=== PATIENT | female | born 1985 | race African-American/Black ===

== ENCOUNTER 2020-06-03 14:22 | Inpatient (IN) | payer OTHER ==
[2020-06-03] MEDS ORDERED: SODIUM CHLORIDE 1,000 ML IV STA (15:20)
[2020-06-03] MEDS ORDERED: ONDANSETRON 4 MG/2 ML VIAL IVPUSH ONE (15:21)
[2020-06-03] MEDS ORDERED: ONDANSETRON 4 MG/2 ML VIAL ONE (16:14)
[2020-06-03 17:19] LABS: BASO % 0.3 % (0-2.0); EOS % 0.4 % (0-4.5); HEMATOCRIT 39.5 % (32.4-45.2); HEMOGLOBIN 13.2 GM/dL (10.7-15.3); LYMPH % 25.1 % (8-40); MCH 34.5 pg (25.7-33.7); MCHC 33.4 g/dl (32.0-36.0); MEAN CELL VOLUME 103.2 fl (80-96); MEAN PLT VOLUME 9.9 fl (7.5-11.1); MONO % 6.8 % (3.8-10.2); NEUT % 67.4 % (42.8-82.8); PLATELET COUNT 139 K/MM3 (134-434); RBC 3.83 M/mm3 (3.60-5.2); RDW 16.5 % (11.6-15.6); WHITE BLOOD COUNT 3.9 K/mm3 (4.0-10.0)
[2020-06-03 17:21] LABS: INR 1.25 (0.83-1.09)
[2020-06-03 17:23] LABS: ACTIVATED PTT 30.9 SECONDS (25.2-36.5)
[2020-06-03 17:33] LABS: ALBUMIN 3.7 g/dl (3.4-5.0); CALCIUM 9.1 mg/dL (8.5-10.1)
[2020-06-03 17:35] LABS: CREATININE 0.8 mg/dL (0.55-1.3)
[2020-06-03 17:37] LABS: BILIRUBIN,TOTAL 2.1 mg/dL (0.2-1); TOT PROT 7.6 g/dl (6.4-8.2)
[2020-06-03 17:45] LABS: POTASSIUM 2.7 mmol/L (3.5-5.1)
[2020-06-03] MEDS ORDERED: POTASSIUM CHLORIDE ORAL LIQUID 20 MEQ/15 ML PO ONE (17:50)
[2020-06-03] MEDS ORDERED: POTASSIUM CHLORIDE 20 MEQ PREMIX IVPB 100 ML IVPB ONE (17:51)
[2020-06-03] MEDS ORDERED: DEXTROSE 5%-0.45% SALINE 1,000 ML IV ONE (17:53)
[2020-06-03] MEDS ORDERED: KCL 10 MEQ IVPB 20 MEQ/200 ML INFUS.BAG IVPB ONE (18:02)
[2020-06-03] MEDS ORDERED: POTASSIUM CHLORIDE ORAL LIQUID 20 MEQ/15 ML ONE (18:02)
[2020-06-03 18:32] LABS: EPI CELLS 16 /uL (0-25.1); HYALINE CASTS 21 /uL (0-3.1); URINE APPEARANCE CLOUDY; URINE BACTERIA 1853 /uL (0-1359); URINE BILIRUBIN 2+ (NEGATIVE); URINE COLOR DK YELLOW; URINE GLUCOSE (UA) NEGATIVE (NEGATIVE); URINE KETONE 1+ (NEGATIVE); URINE LEUK ESTERASE TRACE (NEGATIVE); URINE NITRITE NEGATIVE (NEGATIVE); URINE PROTEIN 1+ (NEGATIVE); URINE WBC 195 /uL (0-25.8)
[2020-06-03 18:33] LABS: HCG,QUALITATIVE URINE Negative
[2020-06-03] MEDS ORDERED: FOLIC ACID 1 MG TABLET (FP) PO ONE (19:58)
[2020-06-03] MEDS ORDERED: THIAMINE HCL 100 MG TABLET (FP) PO ONE (19:58)
[2020-06-03] MEDS ORDERED: THIAMINE HCL 100 MG TABLET (FP) ONE (20:02)
[2020-06-03] MEDS ORDERED: FOLIC ACID 1 MG TABLET (FP) ONE (20:03)
[2020-06-03 21:44] LABS: ALBUMIN 3.2 g/dl (3.4-5.0); ALK PHOS 173 U/L (45-117); ANION GAP 9 MMOL/L (8-16); BILIRUBIN,TOTAL 1.5 mg/dL (0.2-1); BLOOD UREA NITROGEN 4.8 mg/dL (7-18); CALCIUM 7.8 mg/dL (8.5-10.1); CHLORIDE 100 mmol/L (98-107); CO2 27 mmol/L (21-32); GLUCOSE,RANDOM 117 mg/dL (74-106); POTASSIUM 3.4 mmol/L (3.5-5.1); SGOT/AST 160 U/L (15-37); SGPT/ALT 82 U/L (13-61); SODIUM 136 mmol/L (136-145); TOT PROT 6.8 g/dl (6.4-8.2)
[2020-06-03] MEDS ORDERED: METOCLOPRAMIDE HCL INJECTION 10 MG/2 ML VIAL IVPB ONE (22:02)
[2020-06-03] MEDS ORDERED: METOCLOPRAMIDE HCL INJECTION 10 MG/2 ML VIAL ONE (22:08)
[2020-06-03] MEDS ORDERED: LACTATED RINGERS SOLUTION 1,000 ML/1,000 ML INFUS.BAG IV SCH (23:45)
[2020-06-03] MEDS ORDERED: PROCHLORPERAZINE INJECTION 10 MG/2 ML VIAL IVPB ONE (23:58)
[2020-06-04] MEDS ORDERED: PANTOPRAZOLE SODIUM 40 MG VIAL IVPB ONE (00:04)
[2020-06-04] MEDS ORDERED: PROCHLORPERAZINE INJECTION 10 MG/2 ML VIAL ONE (00:26)
[2020-06-04] MEDS ORDERED: PANTOPRAZOLE SODIUM 40 MG VIAL ONE ×2 (01:10→08:11)
[2020-06-04] MEDS ORDERED: CEFTRIAXONE 1 MG in DEXTROSE 5%-WATER - 50 ML IVPB SCH (04:43)
[2020-06-04] MEDS ORDERED: ONDANSETRON 4 MG/2 ML VIAL IVPUSH PRN (04:44)
[2020-06-04] MEDS ORDERED: CEFTRIAXONE 1 GM/50 ML BAG ONE (05:04)
[2020-06-04] MEDS ORDERED: FOLIC ACID INJECTION - 1 MG, THIAMINE HCL 100 MG, MULTIVIT INJECTION ADULT 10 ML in SOD... IVPB ONE (05:07)
[2020-06-04] MEDS ORDERED: CEFTRIAXONE 1 GM in DEXTROSE 5%-WATER - 50 ML IVPB SCH (05:30)
[2020-06-04] MEDS ORDERED: THIAMINE HCL 200 MG/2 ML VIAL IVPB SCH ×2 (05:31→10:00)
[2020-06-04] MEDS ORDERED: MULTIVITAMINS (DAILY MVI) TABLET (FP) ONE (08:10)
[2020-06-04] MEDS ORDERED: THIAMINE HCL 200 MG/2 ML VIAL ONE (08:10)
[2020-06-04] MEDS ORDERED: ENOXAPARIN NA (PORCINE) 40 MG/0.4 ML DISP.SYRIN SQ ONE (08:11)
[2020-06-04] MEDS ORDERED: FOLIC ACID 1 MG TABLET (FP) ONE (08:11)
[2020-06-04 08:21] LABS: HEMATOCRIT 35.8 % (32.4-45.2); HEMOGLOBIN 11.7 GM/dL (10.7-15.3); MCHC 32.7 g/dl (32.0-36.0); MEAN CELL VOLUME 104.2 fl (80-96); MEAN PLT VOLUME 9.4 fl (7.5-11.1); PLATELET COUNT 113 K/MM3 (134-434); RBC 3.44 M/mm3 (3.60-5.2); RDW 16.8 % (11.6-15.6); WHITE BLOOD COUNT 3.2 K/mm3 (4.0-10.0)
[2020-06-04 08:41] LABS: ALBUMIN 2.8 g/dl (3.4-5.0); CALCIUM 7.5 mg/dL (8.5-10.1)
[2020-06-04 08:42] LABS: BLOOD UREA NITROGEN 4.2 mg/dL (7-18); MAGNESIUM 1.4 mg/dL (1.8-2.4)
[2020-06-04 08:45] LABS: CREATININE 0.7 mg/dL (0.55-1.3)
[2020-06-04 08:46] LABS: BILIRUBIN,TOTAL 1.2 mg/dL (0.2-1); TOT PROT 5.7 g/dl (6.4-8.2)
[2020-06-04 08:48] LABS: PHOSPHOROUS 2.3 mg/dL (2.5-4.9)
[2020-06-04] MEDS: PANTOPRAZOLE SODIUM 40 MG VIAL IVPUSH SCH (09:17)
[2020-06-04] MEDS: ENOXAPARIN NA (PORCINE) 40 MG/0.4 ML DISP.SYRIN SQ SCH (09:17)
[2020-06-04] MEDS: MULTIVITAMINS (DAILY MVI) TABLET (FP) PO SCH (09:17)
[2020-06-04] MEDS: FOLIC ACID 1 MG TABLET (FP) PO SCH (09:17)
[2020-06-04 10:05] LABS: COCAINE, UR NEGATIVE ng/ml (CUTOFF=300); URINE BARBITURATES NEGATIVE ng/ml (CUTOFF=200); URINE BENZODIAZEPINES NEGATIVE ng/ml (CUTOFF=200)
[2020-06-04 10:06] LABS: METHADONE, UR NEGATIVE ng/ml (CUTOFF=300); OPIATES, URI NEGATIVE ng/ml (CUTOFF=300); PHENCYCLIDINE,URINE NEGATIVE ng/ml (CUTOFF=25); URINE AMPHETAMINES NEGATIVE ng/ml (CUTOFF=500)
[2020-06-04] MEDS ORDERED: POTASSIUM CHLORIDE TABS 20 MEQ TABLET.ER (FP) PO ONE (12:09)
[2020-06-04 14:21] VITALS: BMI 22.6
[2020-06-05] MEDS ORDERED: DEXTROSE 5%-WATER - 50 ML IVPB ONE (08:50)
[2020-06-05] MEDS ORDERED: cefTRIAXone SODIUM 1 GM VIAL ONE (08:50)
[2020-06-05] MEDS: ENOXAPARIN NA (PORCINE) 40 MG/0.4 ML DISP.SYRIN SQ SCH (09:08)
[2020-06-05] MEDS: MULTIVITAMINS (DAILY MVI) TABLET (FP) PO SCH (09:09)
[2020-06-05] MEDS: FOLIC ACID 1 MG TABLET (FP) PO SCH (09:09)
[2020-06-05] MEDS: PANTOPRAZOLE SODIUM 40 MG VIAL IVPUSH SCH (09:09)
[2020-06-05 09:32] LABS: BASO % 0.6 % (0-2.0); HEMATOCRIT 36.5 % (32.4-45.2); LYMPH % 42.1 % (8-40); MCH 34.5 pg (25.7-33.7); MCHC 32.7 g/dl (32.0-36.0); MEAN CELL VOLUME 105.4 fl (80-96); MEAN PLT VOLUME 9.6 fl (7.5-11.1); MONO % 10.9 % (3.8-10.2); NEUT % 42.4 % (42.8-82.8); PLATELET COUNT 101 K/MM3 (134-434); RBC 3.47 M/mm3 (3.60-5.2); RDW 17.2 % (11.6-15.6); WHITE BLOOD COUNT 2.8 K/mm3 (4.0-10.0)
[2020-06-05 09:45] LABS: POTASSIUM 3.1 mmol/L (3.5-5.1)
[2020-06-05 09:50] LABS: CALCIUM 8.3 mg/dL (8.5-10.1)
[2020-06-05 09:51] LABS: BLOOD UREA NITROGEN 3.1 mg/dL (7-18)
[2020-06-05 09:52] LABS: MAGNESIUM 1.5 mg/dL (1.8-2.4)
[2020-06-05 09:53] LABS: CREATININE 0.6 mg/dL (0.55-1.3)
[2020-06-05 09:54] LABS: BILIRUBIN,TOTAL 1.2 mg/dL (0.2-1); TOT PROT 6.1 g/dl (6.4-8.2)
[2020-06-05] MEDS ORDERED: CEFTRIAXONE 1 GM in DEXTROSE 5%-WATER - 50 ML IVPB SCH (10:00)
[2020-06-05] MEDS ORDERED: PANTOPRAZOLE 40 MG TABLET PO SCH (10:00)
[2020-06-05 10:29] LABS: ANISOCYTOSIS 2+; MACROCYTOSIS 2+; PLATELET ESTIMATE DECREASED
[2020-06-05] MEDS ORDERED: POTASSIUM CHLORIDE TABS 20 MEQ TABLET.ER (FP) PO ONE (10:44)
[2020-06-05] MEDS ORDERED: MAGNESIUM SULF 50% (8.12 MEQ/2 ML-1 GM VIAL) IVPB ONE (10:44)
[2020-06-05] MEDS ORDERED: MAGNESIUM SULFATE IN WATER 2 GM/50 ML IVPB IVPB ONE (11:00)
[2020-06-05 16:51] LABS: HIV INTERPRETATION NEGATIVE (NEGATIVE)
[2020-06-05 17:07] LABS: BASO % 2.4 % (0-2.0); EOS % 3.1 % (0-4.5); HEMATOCRIT 42.1 % (32.4-45.2); HEMOGLOBIN 13.3 GM/dL (10.7-15.3); LYMPH % 43.5 % (8-40); MCH 33.3 pg (25.7-33.7); MCHC 31.7 g/dl (32.0-36.0); MEAN CELL VOLUME 105.1 fl (80-96); MEAN PLT VOLUME 10.7 fl (7.5-11.1); MONO % 9.4 % (3.8-10.2); NEUT % 41.6 % (42.8-82.8); PLATELET COUNT 129 K/MM3 (134-434); WHITE BLOOD COUNT 3.1 K/mm3 (4.0-10.0)
[2020-06-05 17:23] LABS: POTASSIUM 3.6 mmol/L (3.5-5.1)
[2020-06-05 17:24] LABS: CALCIUM 8.7 mg/dL (8.5-10.1)
[2020-06-05 17:25] LABS: MAGNESIUM 2.3 mg/dL (1.8-2.4)
[2020-06-05 17:28] LABS: CREATININE 0.7 mg/dL (0.55-1.3)
[2020-06-05 17:37] LABS: BLOOD UREA NITROGEN 2.1 mg/dL (7-18)
[2020-06-05 17:51] LABS: ANISOCYTOSIS 2+; MACROCYTOSIS 2+
[2020-06-05 17:54] VITALS: BP 133/86; PULSE 56; TEMP 98.1
[2020-06-05] MEDS ORDERED: MAGNESIUM OXIDE 400 MG TABLET (FP) PO SCH (22:00)
[2020-06-06 21:07] LABS: HEP B CORE AB, TOT Negative (Negative)
== END 2020-06-05 23:00 | disposition left against medical advice (07) | DRG 463 ==
LOC: JER 14:22 → JERBED 23:57 → J5S 06-04 13:17
PROVIDERS: ADMIT Internal Medicine; ATTEND Family Medicine
DX: N39.0 Urinary tract infection, site not specified (principal); D69.6 Thrombocytopenia, unspecified; E88.09 Other disorders of plasma-protein metabolism, not elsewhere classified; R16.0 Hepatomegaly, not elsewhere classified; D75.89 Other specified diseases of blood and blood-forming organs; R74.01 Elevation of levels of liver transaminase levels; R10.31 Right lower quadrant pain; K76.0 Fatty (change of) liver, not elsewhere classified; E87.6 Hypokalemia; D72.819 Decreased white blood cell count, unspecified; D53.9 Nutritional anemia, unspecified; R11.2 Nausea with vomiting, unspecified; N83.202 Unspecified ovarian cyst, left side; F10.10 Alcohol abuse, uncomplicated; R74.8 Abnormal levels of other serum enzymes
CPT/HCPCS: 36415; 71046-TC-FY; 74177-TC; 80048; 80053; 80307; 81003; 82550; 83516; 83690; 83735; 84100; 84484; 84703; 85025; 85027; 85610; 85730; 86038; 86704; 86706; 86707; 86708; 86709; 86850; 86900; 86901; 87086; 87186; 87340; 87389; 87522; 93005; 93010; 99285-25; C9803; Q9967; U0003

== ENCOUNTER 2020-12-03 12:36 | Emergency (ER) | payer OTHER ==
[2020-12-03 12:47] VITALS: BP 102/72; PULSE 88; TEMP 99; BMI 20.6
[2020-12-03] MEDS ORDERED: KETOROLAC TROMETHAMINE 30 MG/1 ML VIAL IM ONE (13:11)
[2020-12-03] MEDS ORDERED: diazePAM 5 MG TABLET PO ONE (13:12)
[2020-12-03] MEDS ORDERED: KETOROLAC TROMETHAMINE 30 MG/1 ML VIAL ONE (13:14)
[2020-12-03] MEDS ORDERED: diazePAM 5 MG TABLET ONE (13:14)
== END 2020-12-03 13:26 | disposition home or self-care (01) ==
LOC: JER 12:36
PROC: 3E0233Z Introduction of Anti-inflammatory into Muscle, Percutaneous Approach (ICD-10-PCS; principal; 2020-12-03)
DX: M54.2 Cervicalgia (principal)
CPT/HCPCS: 99284-25

== ENCOUNTER 2021-01-03 08:32 | Emergency (ER) | payer OTHER ==
[2021-01-03 08:53] VITALS: BP 125/85; PULSE 82; TEMP 98.1; BMI 24.1
[2021-01-03] MEDS ORDERED: IBUPROFEN 400 MG TABLET (FP) PO ONE ×2 (09:13→09:21)
== END 2021-01-03 10:10 | disposition home or self-care (01) ==
LOC: JER 08:32
DX: M25.511 Pain in right shoulder (principal)
CPT/HCPCS: 73030-TC-RT-FY; 99284-25

== ENCOUNTER 2021-04-10 11:18 | Inpatient (IN) | payer OTHER ==
[2021-04-10] MEDS ORDERED: SODIUM CHLORIDE 0.9% 500 ML INFUS.BAG IV ONE ×2 (12:14→15:15)
[2021-04-10] MEDS ORDERED: ONDANSETRON 4 MG/2 ML VIAL IVPUSH ONE (12:14)
[2021-04-10] MEDS ORDERED: morphine CARPU-JECT 2 MG/1 ML DISP.SYRIN IVPUSH ONE (12:15)
[2021-04-10] MEDS ORDERED: morphine SULFATE 4 MG/ML VIAL ONE (12:31)
[2021-04-10] MEDS ORDERED: ONDANSETRON 4 MG/2 ML VIAL ONE (12:31)
[2021-04-10 12:59] LABS: EOS % 1.3 % (0-4.5); HEMATOCRIT 37.5 % (32.4-45.2); HEMOGLOBIN 12.6 GM/dL (10.7-15.3); LYMPH % 30.6 % (8-40); MCH 35.4 pg (25.7-33.7); MCHC 33.6 g/dl (32.0-36.0); MEAN CELL VOLUME 105.5 fl (80-96); MEAN PLT VOLUME 8.2 fl (7.5-11.1); MONO % 8.4 % (3.8-10.2); NEUT % 58.7 % (42.8-82.8); PLATELET COUNT 238 10^3/uL (134-434); RBC 3.56 M/mm3 (3.60-5.2); RDW 16.2 % (11.6-15.6); WHITE BLOOD COUNT 4.2 K/mm3 (4.0-10.0)
[2021-04-10 13:23] LABS: CALCIUM 8.3 mg/dL (8.5-10.1)
[2021-04-10 13:24] LABS: ALBUMIN 3.5 g/dl (3.4-5.0); BLOOD UREA NITROGEN 6.7 mg/dL (7-18)
[2021-04-10 13:27] LABS: BILIRUBIN,TOTAL 0.4 mg/dL (0.2-1); CREATININE 0.7 mg/dL (0.55-1.3); TOT PROT 7.4 g/dl (6.4-8.2)
[2021-04-10 14:25] LABS: ANISOCYTOSIS 1+; MACROCYTOSIS 1+; OVALOCYTE 1+; PLATELET ESTIMATE NORMAL; TEAR DROP CELLS 1+
[2021-04-10 17:41] LABS: EPI CELLS >36 /uL (0-25.1); HCG,QUALITATIVE URINE Negative; HYALINE CASTS 2 /uL (0-3.1); PH,URINE 5.5 (5.0-8.0); URINE APPEARANCE CLOUDY; URINE BACTERIA >9,000 /uL (0-1359); URINE BILIRUBIN NEGATIVE (NEGATIVE); URINE COLOR YELLOW; URINE GLUCOSE (UA) NEGATIVE (NEGATIVE); URINE KETONE TRACE (NEGATIVE); URINE LEUK ESTERASE NEGATIVE (NEGATIVE); URINE NITRITE POSITIVE (NEGATIVE); URINE PROTEIN NEGATIVE (NEGATIVE); URINE RBC 7 /uL (0-23.9); URINE WBC 41 /uL (0-25.8)
[2021-04-10 17:49] LABS: PHENCYCLIDINE,URINE NEGATIVE (NEGATIVE); URINE BARBITURATES NEGATIVE (NEGATIVE); URINE BENZODIAZEPINES NEGATIVE (NEGATIVE)
[2021-04-10 17:50] LABS: METHADONE, UR NEGATIVE (NEGATIVE)
[2021-04-10 17:57] LABS: COCAINE, UR NEGATIVE (NEGATIVE); OPIATES, URI POSITIVE (NEGATIVE); URINE AMPHETAMINES NEGATIVE (NEGATIVE)
[2021-04-10] MEDS ORDERED: CEFTRIAXONE 1 GM in DEXTROSE 5%-WATER - 50 ML IVPB ONE (17:57)
[2021-04-10] MEDS ORDERED: CEFTRIAXONE 1 GM/50 ML BAG ONE (18:52)
[2021-04-10] MEDS ORDERED: HYDROmorphone HCL CARPU-JECT 2 MG/1 ML DISP.SYRIN IVPB ONE (21:19)
[2021-04-10] MEDS ORDERED: PANTOPRAZOLE SODIUM 40 MG VIAL IVPUSH ONE (21:20)
[2021-04-10] MEDS ORDERED: PANTOPRAZOLE SODIUM 40 MG VIAL ONE (21:42)
[2021-04-10] MEDS ORDERED: HYDROmorphone HCl 2 MG/ML VIAL ONE (21:42)
[2021-04-10] MEDS: LACTATED RINGERS SOLUTION 1,000 ML/1,000 ML INFUS.BAG IV SCH (22:12)
[2021-04-10] MEDS ORDERED: D5-1/2NS+20 MEQ KCL - 20 MEQ/1,000 ML INFUS.BAG IV SCH (22:15)
[2021-04-10 23:01] LABS: INR 1.1 (0.83-1.09); PROTHROMBIN TIME (PATIENT) 12.3 SEC (9.7-13.0)
[2021-04-11 01:07] VITALS: BMI 20.9
[2021-04-11] MEDS ORDERED: ACETAMINOPHEN 1000 MG/100 ML VIAL IVPB PRN (01:35)
[2021-04-11] MEDS ORDERED: METHOCARBAMOL 500 MG TABLET PO PRN (01:41)
[2021-04-11] MEDS: LACTATED RINGERS SOLUTION 1,000 ML/1,000 ML INFUS.BAG IV SCH ×3 (05:48→21:41)
[2021-04-11] MEDS: HEPARIN NA (PORCINE) 5,000 UNITS/ML 1ML VIAL SQ SCH ×3 (05:48→21:32)
[2021-04-11] MEDS ORDERED: DEXTROSE 5%-WATER - 50 ML IVPB ONE ×3 (09:19→18:30)
[2021-04-11] MEDS ORDERED: cefTRIAXone SODIUM 1 GM VIAL ONE (09:19)
[2021-04-11] MEDS ORDERED: HYDROmorphone HCl 2 MG/ML VIAL IM PRN (09:20)
[2021-04-11] MEDS ORDERED: ONDANSETRON 4 MG/2 ML VIAL IVPUSH PRN (09:26)
[2021-04-11 09:34] LABS: BASO % 0.2 % (0-2.0); EOS % 1.2 % (0-4.5); HEMATOCRIT 28.3 % (32.4-45.2); HEMOGLOBIN 9.5 GM/dL (10.7-15.3); LYMPH % 39.9 % (8-40); MCH 35.5 pg (25.7-33.7); MCHC 33.6 g/dl (32.0-36.0); MEAN CELL VOLUME 105.8 fl (80-96); MEAN PLT VOLUME 8.8 fl (7.5-11.1); MONO % 8.8 % (3.8-10.2); NEUT % 49.9 % (42.8-82.8); PLATELET COUNT 159 10^3/uL (134-434); RBC 2.67 M/mm3 (3.60-5.2); RDW 16.3 % (11.6-15.6)
[2021-04-11] MEDS ORDERED: POTASSIUM CHLORIDE TABS 20 MEQ TABLET.ER (FP) PO ONE (09:44)
[2021-04-11 09:50] LABS: BLOOD UREA NITROGEN 4.4 mg/dL (7-18)
[2021-04-11] MEDS ORDERED: PIPERACILLIN/TAZOBACTAM 3.375 GM VIAL IVPB ONE ×2 (09:52→18:29)
[2021-04-11 09:53] LABS: CREATININE 0.4 mg/dL (0.55-1.3)
[2021-04-11] MEDS ORDERED: PIPERACILLIN/TAZOB 3.375 GM 3.375 GM in DEXTROSE 5%-WATER - 50 ML IVPB SCH (10:00)
[2021-04-11] MEDS ORDERED: CEFTRIAXONE 1 GM in DEXTROSE 5%-WATER - 50 ML IVPB SCH (10:00)
[2021-04-11 10:06] LABS: TOT PROT 4.4 g/dl (6.4-8.2)
[2021-04-11] MEDS: PIPERACILLIN/TAZOB 3.375 GM 3.375 GM in DEXTROSE 5%-WATER - 50 ML IVPB SCH ×2 (10:06→18:36)
[2021-04-11] MEDS: KCL 10 MEQ IVPB 10 MEQ/100 ML INFUS.BAG IVPB SCH ×3 (12:00→19:28)
[2021-04-11] MEDS: DEXTROSE 5%-LACTATED RINGERS 1,000 ML IV SCH (17:45)
[2021-04-11] MEDS ORDERED: KCL 10 MEQ IVPB 10 MEQ/100 ML INFUS.BAG IVPB SCH (19:30)
[2021-04-11] MEDS: PANTOPRAZOLE SODIUM 40 MG VIAL IVPUSH SCH (19:35)
[2021-04-11] MEDS ORDERED: DEXTROSE 50%-WATER - 25 GM/50 ML VIAL IVPUSH ONE (21:33)
[2021-04-11] MEDS ORDERED: DEXTROSE 50%-WATER - 25 GM/50 ML VIAL ONE (21:39)
[2021-04-12] MEDS ORDERED: PIPERACILLIN/TAZOBACTAM 3.375 GM VIAL IVPB ONE ×2 (00:47→10:27)
[2021-04-12] MEDS ORDERED: DEXTROSE 5%-WATER - 50 ML IVPB ONE ×3 (00:48→10:43)
[2021-04-12] MEDS: PIPERACILLIN/TAZOB 3.375 GM 3.375 GM in DEXTROSE 5%-WATER - 50 ML IVPB SCH (01:01)
[2021-04-12] MEDS: HEPARIN NA (PORCINE) 5,000 UNITS/ML 1ML VIAL SQ SCH ×3 (06:19→21:10)
[2021-04-12] MEDS: DEXTROSE 5%-LACTATED RINGERS 1,000 ML IV SCH ×2 (08:35→21:09)
[2021-04-12 09:25] LABS: BASO % 0.6 % (0-2.0); EOS % 3.2 % (0-4.5); HEMATOCRIT 31.4 % (32.4-45.2); HEMOGLOBIN 10.8 GM/dL (10.7-15.3); LYMPH % 30.3 % (8-40); MCH 35.7 pg (25.7-33.7); MCHC 34.5 g/dl (32.0-36.0); MEAN CELL VOLUME 103.5 fl (80-96); MEAN PLT VOLUME 8.6 fl (7.5-11.1); MONO % 9.2 % (3.8-10.2); NEUT % 56.7 % (42.8-82.8); PLATELET COUNT 172 10^3/uL (134-434); RBC 3.03 M/mm3 (3.60-5.2); WHITE BLOOD COUNT 3.4 K/mm3 (4.0-10.0)
[2021-04-12 09:46] LABS: ALBUMIN 2.4 g/dl (3.4-5.0); BLOOD UREA NITROGEN 3.8 mg/dL (7-18)
[2021-04-12 09:47] LABS: TOT PROT 5.1 g/dl (6.4-8.2)
[2021-04-12 09:48] LABS: BILIRUBIN,TOTAL 0.7 mg/dL (0.2-1); CALCIUM 7.5 mg/dL (8.5-10.1)
[2021-04-12 09:50] LABS: CREATININE 0.7 mg/dL (0.55-1.3)
[2021-04-12] MEDS ORDERED: PIPERACILLIN/TAZOB 3.375 GM 3.375 GM in DEXTROSE 5%-WATER - 50 ML IVPB SCH (10:00)
[2021-04-12] MEDS ORDERED: cefTRIAXone SODIUM 1 GM VIAL ONE (10:43)
[2021-04-12] MEDS: CEFTRIAXONE 1 GM in DEXTROSE 5%-WATER - 50 ML IVPB SCH (10:57)
[2021-04-12] MEDS: PANTOPRAZOLE SODIUM 40 MG VIAL IVPUSH SCH (21:09)
[2021-04-12] MEDS: LACTATED RINGERS SOLUTION 1,000 ML/1,000 ML INFUS.BAG IV SCH (21:10)
[2021-04-13] MEDS: HEPARIN NA (PORCINE) 5,000 UNITS/ML 1ML VIAL SQ SCH ×3 (05:46→21:13)
[2021-04-13 08:46] LABS: BASO % 0.8 % (0-2.0); EOS % 5.1 % (0-4.5); HEMATOCRIT 32.6 % (32.4-45.2); HEMOGLOBIN 11.3 GM/dL (10.7-15.3); LYMPH % 44.1 % (8-40); MCH 35.8 pg (25.7-33.7); MCHC 34.8 g/dl (32.0-36.0); MEAN CELL VOLUME 102.8 fl (80-96); MEAN PLT VOLUME 8.9 fl (7.5-11.1); MONO % 10.3 % (3.8-10.2); NEUT % 39.7 % (42.8-82.8); PLATELET COUNT 159 10^3/uL (134-434); RBC 3.17 M/mm3 (3.60-5.2); RDW 15.8 % (11.6-15.6)
[2021-04-13 09:10] LABS: CHLORIDE 105 mmol/L (98-107); SODIUM 140 mmol/L (136-145)
[2021-04-13 09:13] LABS: ALBUMIN 2.6 g/dl (3.4-5.0); CALCIUM 7.5 mg/dL (8.5-10.1)
[2021-04-13 09:14] LABS: ANION GAP 8 MMOL/L (8-16); CO2 27 mmol/L (21-32); GLUCOSE,RANDOM 93 mg/dL (74-106)
[2021-04-13 09:17] LABS: CREATININE 0.6 mg/dL (0.55-1.3); SGOT/AST 20 U/L (15-37); SGPT/ALT 16 U/L (13-61)
[2021-04-13 09:18] LABS: BILIRUBIN,TOTAL 0.7 mg/dL (0.2-1); TOT PROT 5.7 g/dl (6.4-8.2)
[2021-04-13 09:19] LABS: ALK PHOS 93 U/L (45-117)
[2021-04-13] MEDS ORDERED: cefTRIAXone SODIUM 1 GM VIAL ONE (09:20)
[2021-04-13] MEDS ORDERED: DEXTROSE 5%-WATER - 50 ML IVPB ONE (09:20)
[2021-04-13 09:22] LABS: BLOOD UREA NITROGEN 1.2 mg/dL (7-18)
[2021-04-13] MEDS: CEFTRIAXONE 1 GM in DEXTROSE 5%-WATER - 50 ML IVPB SCH (09:25)
[2021-04-13] MEDS: KCL 10 MEQ IVPB 10 MEQ/100 ML INFUS.BAG IVPB SCH ×3 (11:07→17:16)
[2021-04-13] MEDS: DEXTROSE 5%-LACTATED RINGERS 1,000 ML IV SCH ×2 (11:07→12:46)
[2021-04-14] MEDS: DEXTROSE 5%-LACTATED RINGERS 1,000 ML IV SCH (05:08)
[2021-04-14] MEDS: HEPARIN NA (PORCINE) 5,000 UNITS/ML 1ML VIAL SQ SCH (05:17)
[2021-04-14 09:43] LABS: CHLORIDE 107 mmol/L (98-107); SODIUM 141 mmol/L (136-145)
[2021-04-14 09:44] LABS: ANION GAP 7 MMOL/L (8-16); CALCIUM 8.1 mg/dL (8.5-10.1); CO2 27 mmol/L (21-32)
[2021-04-14 09:45] LABS: GLUCOSE,RANDOM 94 mg/dL (74-106); MAGNESIUM 1.1 mg/dL (1.8-2.4)
[2021-04-14 09:47] LABS: CREATININE 0.6 mg/dL (0.55-1.3)
[2021-04-14] MEDS ORDERED: CEFUROXIME AXETIL 250 MG TABLET PO SCH (10:00)
[2021-04-14] MEDS ORDERED: PANTOPRAZOLE 40 MG TABLET PO SCH (10:00)
[2021-04-14 10:12] LABS: BLOOD UREA NITROGEN 1.8 mg/dL (7-18)
[2021-04-14] MEDS ORDERED: MAGNESIUM SULF 50% (8.12 MEQ/2 ML-1 GM VIAL) IVPB ONE (11:47)
[2021-04-14] MEDS ORDERED: MAGNESIUM OXIDE 400 MG TABLET (FP) PO SCH (12:00)
[2021-04-14 13:41] VITALS: BP 113/78; PULSE 71; TEMP 98.7
== END 2021-04-14 14:40 | disposition home or self-care (01) | DRG 282 ==
LOC: JER 11:18 → JERBED 21:18 → J5S 23:59
PROVIDERS: ADMIT Internal Medicine; ATTEND Family Medicine
PROC: 0DB68ZX Excision of Stomach, Via Natural or Artificial Opening Endoscopic, Diagnostic (ICD-10-PCS; principal; 2021-04-13 14:30)
DX: K85.90 Acute pancreatitis without necrosis or infection, unspecified (principal); N30.00 Acute cystitis without hematuria; R11.2 Nausea with vomiting, unspecified; E78.5 Hyperlipidemia, unspecified; F10.10 Alcohol abuse, uncomplicated; K83.4 Spasm of sphincter of Oddi; R11.15 Cyclical vomiting syndrome unrelated to migraine; F12.188 Cannabis abuse with other cannabis-induced disorder; D64.9 Anemia, unspecified; K29.50 Unspecified chronic gastritis without bleeding
CPT/HCPCS: 36415; 74177-TC; 74181-TC; 80048; 80053; 80307; 81003; 82962; 83690; 83735; 84703; 85025; 85610; 86850; 86900; 86901; 87086; 87186; 88305-TC; 93005; 93010; 99285-25; C9803; J0131; J1644; Q9967; U0003; U0005

== ENCOUNTER 2022-12-13 05:22 | Inpatient (IN) | payer OTHER ==
[2022-12-13] MEDS ORDERED: ONDANSETRON 4 MG/2 ML VIAL IVPUSH ONE (06:24)
[2022-12-13] MEDS ORDERED: FAMOTIDINE 20 MG/50 ML IVPB 20 MG/50 ML MG IVPB ONE (06:24)
[2022-12-13] MEDS ORDERED: ACETAMINOPHEN 1000 MG/100 ML BAG IVPB ONE (06:24)
[2022-12-13] MEDS ORDERED: LACTATED RINGERS SOLUTION 1000 ML INFUS.BAG IV ONE (06:24)
[2022-12-13] MEDS ORDERED: ACETAMINOPHEN INJECTION 100 ML IVPB ONE (06:27)
[2022-12-13] MEDS ORDERED: FAMOTIDINE 10 MG/ML VIAL IVPB ONE (06:27)
[2022-12-13] MEDS ORDERED: ONDANSETRON 4 MG/2 ML VIAL ONE (06:27)
[2022-12-13 06:34] LABS: BASO % 0.6 % (0-2.0); EOS % 0.8 % (0-4.5); HEMATOCRIT 38.8 % (32.4-45.2); HEMOGLOBIN 12.8 GM/dL (10.7-15.3); LYMPH % 20.1 % (8-40); MCH 33.9 pg (25.7-33.7); MCHC 33.1 g/dl (32.0-36.0); MEAN CELL VOLUME 102.4 fl (80-96); NEUT % 68.5 % (42.8-82.8); PLATELET COUNT 142 10^3/uL (134-434); RBC 3.79 M/mm3 (3.60-5.2)
[2022-12-13 06:50] LABS: CHLORIDE 100 mmol/L (98-107); POTASSIUM 3.8 mmol/L (3.5-5.1); SODIUM 143 mmol/L (136-145)
[2022-12-13 06:52] LABS: ANION GAP 13 MMOL/L (8-16); BLOOD UREA NITROGEN 8.3 mg/dL (7-18); CALCIUM 8.8 mg/dL (8.5-10.1); CO2 29 mmol/L (21-32); GLUCOSE,RANDOM 81 mg/dL (74-106)
[2022-12-13 06:53] LABS: ALBUMIN 3.4 g/dl (3.4-5.0); INR 1.2 (0.83-1.09); PROTHROMBIN TIME (PATIENT) 13.9 SEC (9.7-13.0)
[2022-12-13 06:55] LABS: CREATININE 0.8 mg/dL (0.55-1.3); SGOT/AST 192 U/L (15-37); SGPT/ALT 112 U/L (13-61)
[2022-12-13 06:56] LABS: ACTIVATED PTT 29.7 SECONDS (25.2-36.5)
[2022-12-13 06:57] LABS: BILIRUBIN,TOTAL 1.2 mg/dL (0.2-1)
[2022-12-13 06:58] LABS: ALK PHOS 177 U/L (45-117)
[2022-12-13 07:06] LABS: LACTIC ACID 2.8 mmol/L (0.4-2.0)
[2022-12-13] MEDS ORDERED: METOCLOPRAMIDE HCL INJECTION 10 MG/2 ML VIAL IVPUSH ONE (07:15)
[2022-12-13] MEDS ORDERED: METOCLOPRAMIDE HCL INJECTION 10 MG/2 ML VIAL ONE (07:18)
[2022-12-13 08:11] LABS: LACTIC ACID 4.6 mmol/L (0.4-2.0)
[2022-12-13] MEDS ORDERED: HALOPERIDOL LACTATE 5 MG/ML IM ONE ×2 (08:12→08:16)
[2022-12-13] MEDS ORDERED: SODIUM CHLORIDE 0.9% 500 ML INFUS.BAG IV ONE (08:12)
[2022-12-13] MEDS ORDERED: MAGNESIUM SULF 50% (8.12 MEQ/2 ML-1 GM VIAL) IVPB ONE (08:13)
[2022-12-13] MEDS ORDERED: MAGNESIUM SULFATE IN WATER 2 GM/50 ML IVPB IVPB ONE (08:16)
[2022-12-13 08:30] LABS: LIPASE 2480 U/L (73-393)
[2022-12-13] MEDS ORDERED: morphine CARPU-JECT 4 MG/1 ML DISP.SYRIN IVPUSH ONE (08:35)
[2022-12-13] MEDS ORDERED: ONDANSETRON 4 MG/2 ML VIAL IVPUSH PRN (11:13)
[2022-12-13] MEDS ORDERED: ERGOCALCIFEROL (VIT D2) 50,000 UNIT (1.25 MG) CAPSULE PO SCH (11:15)
[2022-12-13 11:50] VITALS: BMI 20.1
[2022-12-13] MEDS: BACLOFEN 10 MG TABLET (FP) PO SCH ×2 (12:49→22:26)
[2022-12-13] MEDS: LACTATED RINGERS SOLUTION 1,000 ML/1,000 ML INFUS.BAG IV SCH ×2 (12:51→22:27)
[2022-12-13 13:10] LABS: LACTIC ACID 3.3 mmol/L (0.4-2.0)
[2022-12-13] MEDS: GABAPENTIN 300 MG CAPSULE PO SCH ×2 (13:40→22:26)
[2022-12-13] MEDS: HEPARIN NA (PORCINE) 5,000 UNITS/ML 1ML VIAL SQ SCH (22:26)
[2022-12-14] MEDS: LACTATED RINGERS SOLUTION 1,000 ML/1,000 ML INFUS.BAG IV SCH ×2 (05:43→15:36)
[2022-12-14] MEDS: GABAPENTIN 300 MG CAPSULE PO SCH ×3 (05:43→21:52)
[2022-12-14 08:50] LABS: BASO % 0.2 % (0-2.0); EOS % 1.2 % (0-4.5); HEMOGLOBIN 13.6 GM/dL (10.7-15.3); LYMPH % 8.5 % (8-40); MCH 34.1 pg (25.7-33.7); MCHC 33.9 g/dl (32.0-36.0); MEAN CELL VOLUME 100.6 fl (80-96); MEAN PLT VOLUME 9.2 fl (7.5-11.1); MONO % 5.5 % (3.8-10.2); NEUT % 84.6 % (42.8-82.8); PLATELET COUNT 114 10^3/uL (134-434); RBC 3.98 M/mm3 (3.60-5.2); RDW 15.7 % (11.6-15.6); WHITE BLOOD COUNT 4.4 K/mm3 (4.0-10.0)
[2022-12-14 09:03] LABS: CHLORIDE 101 mmol/L (98-107); SODIUM 139 mmol/L (136-145)
[2022-12-14 09:05] LABS: ALBUMIN 2.8 g/dl (3.4-5.0); ANION GAP 8 MMOL/L (8-16); BLOOD UREA NITROGEN 5.1 mg/dL (7-18); CO2 30 mmol/L (21-32); GLUCOSE,RANDOM 80 mg/dL (74-106)
[2022-12-14 09:08] LABS: SGOT/AST 77 U/L (15-37); SGPT/ALT 66 U/L (13-61)
[2022-12-14 09:09] LABS: CREATININE 0.6 mg/dL (0.55-1.3)
[2022-12-14 09:10] LABS: BILIRUBIN,TOTAL 1.5 mg/dL (0.2-1); TOT PROT 5.5 g/dl (6.4-8.2)
[2022-12-14 09:14] LABS: ALK PHOS 121 U/L (45-117)
[2022-12-14] MEDS: THIAMINE HCL 100 MG TABLET (FP) PO SCH (09:42)
[2022-12-14] MEDS: BACLOFEN 10 MG TABLET (FP) PO SCH ×2 (09:43→21:52)
[2022-12-14] MEDS: HEPARIN NA (PORCINE) 5,000 UNITS/ML 1ML VIAL SQ SCH ×2 (09:43→21:52)
[2022-12-14] MEDS ORDERED: CYANOCOBALAMIN 1,000 MCG TABLET (FP) PO SCH (10:00)
[2022-12-14] MEDS ORDERED: PANTOPRAZOLE 40 MG TABLET PO SCH (10:00)
[2022-12-14 12:34] LABS: LIPASE 5493 U/L (73-393)
[2022-12-14] MEDS ORDERED: LACTATED RINGERS SOLUTION 1,000 ML/1,000 ML INFUS.BAG IV SCH (13:01)
[2022-12-14 13:30] LABS: MAGNESIUM 1.3 mg/dL (1.8-2.4)
[2022-12-14 13:31] LABS: IRON SERUM 62 ug/dL (50-175)
[2022-12-14 13:32] LABS: PHOSPHOROUS 2.3 mg/dL (2.5-4.9)
[2022-12-14 13:33] LABS: TOTAL IRON BINDING CAPACITY 215 ug/dL (250-450)
[2022-12-14] MEDS ORDERED: NAPH,MB-DB/K PH,MBDB POWDER PACKET PO ONE (13:33)
[2022-12-14] MEDS ORDERED: MAGNESIUM SULF 50% (8.12 MEQ/2 ML-1 GM VIAL) IVPB ONE (14:00)
[2022-12-14] MEDS ORDERED: LORazepam 1 MG TABLET PO PRN (14:22)
[2022-12-14] MEDS: KCL 10 MEQ IVPB 10 MEQ/100 ML INFUS.BAG IVPB SCH ×3 (14:38→16:53)
[2022-12-14 15:18] LABS: URINE APPEARANCE CLEAR; URINE BILIRUBIN NEGATIVE (NEGATIVE); URINE COLOR YELLOW; URINE GLUCOSE (UA) NEGATIVE (NEGATIVE); URINE KETONE NEGATIVE (NEGATIVE); URINE LEUK ESTERASE NEGATIVE (NEGATIVE); URINE NITRITE NEGATIVE (NEGATIVE); URINE PROTEIN NEGATIVE (NEGATIVE); URINE UROBILINOGEN 4.0 E.U/dl mg/dL (0.2-1.0)
[2022-12-14] MEDS ORDERED: KCL 10 MEQ IVPB 10 MEQ/100 ML INFUS.BAG IVPB SCH (15:30)
[2022-12-14 15:39] LABS: COCAINE, UR NEGATIVE (NEGATIVE); METHADONE, UR NEGATIVE (NEGATIVE); PHENCYCLIDINE,URINE NEGATIVE (NEGATIVE); URINE BENZODIAZEPINES NEGATIVE (NEGATIVE)
[2022-12-14 15:40] LABS: URINE BARBITURATES NEGATIVE (NEGATIVE)
[2022-12-14 15:43] LABS: OPIATES, URI POSITIVE (NEGATIVE); URINE AMPHETAMINES NEGATIVE (NEGATIVE)
[2022-12-14] MEDS ORDERED: LORazepam 2 MG/ML SDV VIAL IVPUSH ONE (15:45)
[2022-12-14] MEDS ORDERED: LORazepam 2 MG TABLET PO SCH (17:00)
[2022-12-14] MEDS: LORazepam 1 MG TABLET PO SCH ×2 (17:09→22:33)
[2022-12-15] MEDS: LORazepam 1 MG TABLET PO SCH ×4 (05:44→22:27)
[2022-12-15] MEDS: GABAPENTIN 300 MG CAPSULE PO SCH ×3 (05:44→21:42)
[2022-12-15 09:06] LABS: BASO % 0.2 % (0-2.0); EOS % 2.1 % (0-4.5); HEMATOCRIT 36.3 % (32.4-45.2); HEMOGLOBIN 12.1 GM/dL (10.7-15.3); LYMPH % 10.5 % (8-40); MCH 33.6 pg (25.7-33.7); MCHC 33.4 g/dl (32.0-36.0); MEAN CELL VOLUME 100.5 fl (80-96); MEAN PLT VOLUME 9.4 fl (7.5-11.1); MONO % 7.2 % (3.8-10.2); PLATELET COUNT 95 10^3/uL (134-434); RBC 3.61 M/mm3 (3.60-5.2); RDW 15.2 % (11.6-15.6); WHITE BLOOD COUNT 5.1 K/mm3 (4.0-10.0)
[2022-12-15 09:10] LABS: INR 1.17 (0.83-1.09); PROTHROMBIN TIME (PATIENT) 13.5 SEC (9.7-13.0)
[2022-12-15 09:29] LABS: POTASSIUM 3.3 mmol/L (3.5-5.1)
[2022-12-15 09:36] LABS: BLOOD UREA NITROGEN 4.4 mg/dL (7-18); CALCIUM 8.2 mg/dL (8.5-10.1)
[2022-12-15 09:37] LABS: ALBUMIN 2.3 g/dl (3.4-5.0)
[2022-12-15 09:39] LABS: CREATININE 0.5 mg/dL (0.55-1.3)
[2022-12-15 09:41] LABS: BILIRUBIN,TOTAL 1.2 mg/dL (0.2-1); TOT PROT 4.9 g/dl (6.4-8.2)
[2022-12-15 09:42] LABS: PHOSPHOROUS 1.2 mg/dL (2.5-4.9)
[2022-12-15] MEDS: BACLOFEN 10 MG TABLET (FP) PO SCH ×2 (10:10→21:43)
[2022-12-15] MEDS: PANTOPRAZOLE 20 MG TABLET PO SCH (10:10)
[2022-12-15] MEDS: THIAMINE HCL 100 MG TABLET (FP) PO SCH (10:10)
[2022-12-15] MEDS: HEPARIN NA (PORCINE) 5,000 UNITS/ML 1ML VIAL SQ SCH ×2 (10:10→21:43)
[2022-12-15] MEDS: DEXTROSE 5%-LACTATED RINGERS 1,000 ML IV SCH ×2 (10:28→22:27)
[2022-12-15] MEDS ORDERED: POTASSIUM CHLORIDE ORAL LIQUID 20 MEQ/15 ML PO ONE (11:30)
[2022-12-15] MEDS ORDERED: POTASSIUM PHOSPHATE 15 MM in SODIUM CHLORIDE 250 ML IVPB ONE (12:00)
[2022-12-15 14:00] LABS: POTASSIUM 3.4 mmol/L (3.5-5.1)
[2022-12-15 14:01] LABS: CALCIUM 8.7 mg/dL (8.5-10.1)
[2022-12-15 14:03] LABS: BLOOD UREA NITROGEN 3.4 mg/dL (7-18); MAGNESIUM 1.9 mg/dL (1.8-2.4)
[2022-12-15 14:06] LABS: CREATININE 0.7 mg/dL (0.55-1.3)
[2022-12-16 04:48] VITALS: RESP 18
[2022-12-16] MEDS: LORazepam 1 MG TABLET PO SCH ×5 (06:05→22:55)
[2022-12-16] MEDS: GABAPENTIN 300 MG CAPSULE PO SCH ×4 (06:44→21:33)
[2022-12-16 08:33] LABS: INR 1.12 (0.83-1.09)
[2022-12-16 08:34] LABS: BASO % 0.5 % (0-2.0); EOS % 2.7 % (0-4.5); HEMATOCRIT 33.6 % (32.4-45.2); LYMPH % 16.9 % (8-40); MCH 33.7 pg (25.7-33.7); MCHC 32.7 g/dl (32.0-36.0); MEAN PLT VOLUME 10.3 fl (7.5-11.1); MONO % 10.4 % (3.8-10.2); NEUT % 69.5 % (42.8-82.8); PLATELET COUNT 94 10^3/uL (134-434); RBC 3.27 M/mm3 (3.60-5.2); RDW 14.9 % (11.6-15.6); WHITE BLOOD COUNT 4.3 K/mm3 (4.0-10.0)
[2022-12-16 08:47] LABS: CHLORIDE 106 mmol/L (98-107); POTASSIUM 3.6 mmol/L (3.5-5.1); SODIUM 142 mmol/L (136-145)
[2022-12-16 08:49] LABS: CALCIUM 8.6 mg/dL (8.5-10.1)
[2022-12-16 08:50] LABS: ALBUMIN 2.4 g/dl (3.4-5.0); ANION GAP 5 MMOL/L (8-16); CO2 31 mmol/L (21-32); GLUCOSE,RANDOM 89 mg/dL (74-106)
[2022-12-16 08:53] LABS: CREATININE 0.5 mg/dL (0.55-1.3); SGOT/AST 110 U/L (15-37); SGPT/ALT 61 U/L (13-61)
[2022-12-16 08:54] LABS: TOT PROT 4.8 g/dl (6.4-8.2)
[2022-12-16 08:55] LABS: BILIRUBIN,TOTAL 0.9 mg/dL (0.2-1)
[2022-12-16 08:56] LABS: ALK PHOS 129 U/L (45-117); BLOOD UREA NITROGEN 2.7 mg/dL (7-18)
[2022-12-16] MEDS: PANTOPRAZOLE 20 MG TABLET PO SCH (09:50)
[2022-12-16] MEDS: BACLOFEN 10 MG TABLET (FP) PO SCH ×2 (09:50→21:33)
[2022-12-16] MEDS: FOLIC ACID 1 MG TABLET (FP) PO SCH (09:50)
[2022-12-16] MEDS: THIAMINE HCL 100 MG TABLET (FP) PO SCH (09:50)
[2022-12-16] MEDS: DEXTROSE 5%-LACTATED RINGERS 1,000 ML IV SCH (10:40)
[2022-12-16 10:44] LABS: MAGNESIUM 1.9 mg/dL (1.8-2.4)
[2022-12-16 10:48] LABS: PHOSPHOROUS 1.4 mg/dL (2.5-4.9)
[2022-12-16] MEDS ORDERED: NAPH,MB-DB/K PH,MBDB POWDER PACKET PO ONE (13:23)
[2022-12-16] MEDS ORDERED: SODIUM PHOSPHATE - 30 MM in SODIUM CHLORIDE 500 ML IVPB ONE (14:58)
[2022-12-16] MEDS: NAPH,MB-DB/K PH,MBDB POWDER PACKET PO SCH (21:33)
[2022-12-17] MEDS ORDERED: LORazepam 0.5 MG TABLET PO PRN
[2022-12-17] MEDS: GABAPENTIN 300 MG CAPSULE PO SCH ×2 (05:40→14:55)
[2022-12-17] MEDS: NAPH,MB-DB/K PH,MBDB POWDER PACKET PO SCH ×2 (05:42→14:55)
[2022-12-17] MEDS: LORazepam 0.5 MG TABLET PO SCH ×2 (05:42→10:09)
[2022-12-17 07:56] LABS: HEMOGLOBIN 10.6 GM/dL (10.7-15.3); MCH 34.6 pg (25.7-33.7); MCHC 34.4 g/dl (32.0-36.0); MEAN CELL VOLUME 100.7 fl (80-96); PLATELET COUNT 120 10^3/uL (134-434); RBC 3.07 M/mm3 (3.60-5.2); RDW 15.2 % (11.6-15.6)
[2022-12-17 08:07] LABS: CHLORIDE 106 mmol/L (98-107); POTASSIUM 3.5 mmol/L (3.5-5.1); SODIUM 142 mmol/L (136-145)
[2022-12-17 08:13] LABS: ALBUMIN 2.4 g/dl (3.4-5.0); ANION GAP 7 MMOL/L (8-16); CO2 29 mmol/L (21-32)
[2022-12-17 08:14] LABS: CALCIUM 8.6 mg/dL (8.5-10.1); GLUCOSE,RANDOM 87 mg/dL (74-106)
[2022-12-17 08:15] LABS: MAGNESIUM 1.6 mg/dL (1.8-2.4)
[2022-12-17 08:16] LABS: PHOSPHOROUS 5.6 mg/dL (2.5-4.9)
[2022-12-17 08:17] LABS: CREATININE 0.5 mg/dL (0.55-1.3); SGOT/AST 101 U/L (15-37); SGPT/ALT 63 U/L (13-61)
[2022-12-17 08:23] LABS: ALK PHOS 132 U/L (45-117)
[2022-12-17 08:24] LABS: BLOOD UREA NITROGEN 1.9 mg/dL (7-18)
[2022-12-17] MEDS: PANTOPRAZOLE 20 MG TABLET PO SCH (09:21)
[2022-12-17] MEDS: THIAMINE HCL 100 MG TABLET (FP) PO SCH (09:21)
[2022-12-17] MEDS: BACLOFEN 10 MG TABLET (FP) PO SCH (09:22)
[2022-12-17] MEDS: FOLIC ACID 1 MG TABLET (FP) PO SCH (09:22)
[2022-12-17] MEDS ORDERED: MAGNESIUM SULF 50% (8.12 MEQ/2 ML-1 GM VIAL) IVPB ONE ×2 (09:26→10:00)
[2022-12-17 14:22] VITALS: BP 118/81; PULSE 102; TEMP 99
[2022-12-18] MEDS ORDERED: LORazepam 0.5 MG TABLET PO ONE (05:00)
== END 2022-12-17 18:22 | disposition home or self-care (01) | DRG 282 ==
LOC: JER 05:22 → JERBED 09:49 → J6S 11:39
PROVIDERS: ADMIT Internal Medicine; ATTEND Internal Medicine
DX: K85.20 Alcohol induced acute pancreatitis without necrosis or infection (principal); R18.8 Other ascites; E83.39 Other disorders of phosphorus metabolism; E88.09 Other disorders of plasma-protein metabolism, not elsewhere classified; G35 Multiple sclerosis; D69.6 Thrombocytopenia, unspecified; K70.10 Alcoholic hepatitis without ascites; D75.9 Disease of blood and blood-forming organs, unspecified; R11.2 Nausea with vomiting, unspecified; F12.188 Cannabis abuse with other cannabis-induced disorder; E87.6 Hypokalemia; F10.10 Alcohol abuse, uncomplicated; N28.1 Cyst of kidney, acquired; K70.9 Alcoholic liver disease, unspecified
CPT/HCPCS: 36415; 74178-TC; 76705-TC; 80048; 80053; 80061; 80307; 81003; 82105; 82150; 82306; 82550; 82553; 82607; 82728; 82746; 83516; 83540; 83550; 83605; 83690; 83735; 84100; 84484; 84703; 85025; 85027; 85610; 85730; 86038; 86140; 86704; 86708; 86709; 86803; 87086; 87340; 87517; 93005; 93010; 99285-25; J0475; J1644; Q9967

== ENCOUNTER 2023-06-10 18:22 | Emergency (ER) | payer OTHER ==
[2023-06-10 19:01] VITALS: BP 123/87; PULSE 86; RESP 20; TEMP 97.8; BMI 20.5
[2023-06-10] MEDS ORDERED: ACETAMINOPHEN 1000 MG/100 ML BAG IVPB ONE (20:20)
[2023-06-10] MEDS ORDERED: ACETAMINOPHEN INJECTION 100 ML IVPB ONE ×2 (21:42→21:48)
[2023-06-10 21:48] LABS: BASO % 1.3 % (0-2.0); EOS % 1.6 % (0-4.5); HEMATOCRIT 36.3 % (32.4-45.2); HEMOGLOBIN 11.9 GM/dL (10.7-15.3); LYMPH % 36.2 % (8-40); MCH 32.8 pg (25.7-33.7); MCHC 32.9 g/dl (32.0-36.0); MEAN CELL VOLUME 99.8 fl (80-96); MONO % 8.6 % (3.8-10.2); NEUT % 52.3 % (42.8-82.8); PLATELET COUNT 258 10^3/uL (134-434); RBC 3.64 M/mm3 (3.60-5.2); RDW 17.7 % (11.6-15.6); WHITE BLOOD COUNT 6.6 K/mm3 (4.0-10.0)
[2023-06-10 22:25] LABS: ALBUMIN 3.2 g/dl (3.4-5.0); CALCIUM 8.1 mg/dL (8.5-10.1)
[2023-06-10 22:26] LABS: BLOOD UREA NITROGEN 5.6 mg/dL (7-18)
[2023-06-10 22:28] LABS: CREATININE 0.5 mg/dL (0.55-1.3)
[2023-06-10 22:30] LABS: BILIRUBIN,TOTAL 0.6 mg/dL (0.2-1); TOT PROT 7.1 g/dl (6.4-8.2)
[2023-06-10 22:31] LABS: ERYTHROCYTE SEDIMENTATION RATE 20 mm/hr (0-20)
[2023-06-10] MEDS ORDERED: PROCHLORPERAZINE INJECTION 10 MG/2 ML VIAL IVPB ONE (22:47)
[2023-06-10] MEDS ORDERED: POTASSIUM CHLORIDE ORAL LIQUID 20 MEQ/15 ML PO ONE (22:47)
[2023-06-10] MEDS ORDERED: KETOROLAC TROMETHAMINE 15 MG/ML VIAL IVPUSH ONE (22:48)
[2023-06-10] MEDS ORDERED: KETOROLAC TROMETHAMINE 15 MG/ML VIAL ONE (22:55)
[2023-06-10] MEDS ORDERED: PROCHLORPERAZINE INJECTION 10 MG/2 ML VIAL ONE (22:55)
[2023-06-10] MEDS ORDERED: POTASSIUM CHLORIDE ORAL LIQUID 20 MEQ/15 ML ONE (23:03)
[2023-06-11] MEDS ORDERED: IBUPROFEN 600 MG TABLET (FP) PO ONE ×2 (01:52→02:03)
== END 2023-06-11 04:04 | disposition left against medical advice (07) ==
LOC: JER 18:22
PROC: 3E033GC Introduction of Other Therapeutic Substance into Peripheral Vein, Percutaneous Approach (ICD-10-PCS; principal; 2023-06-10)
PROC: 3E033NZ Introduction of Analgesics, Hypnotics, Sedatives into Peripheral Vein, Percutaneous Approach (ICD-10-PCS; 2023-06-10)
PROC: 3E033GC Introduction of Other Therapeutic Substance into Peripheral Vein, Percutaneous Approach (ICD-10-PCS; 2023-06-10)
PROC: 3E0333Z Introduction of Anti-inflammatory into Peripheral Vein, Percutaneous Approach (ICD-10-PCS; 2023-06-10)
DX: M25.561 Pain in right knee (principal); G89.29 Other chronic pain; H91.93 Unspecified hearing loss, bilateral; M25.562 Pain in left knee; E87.6 Hypokalemia; R26.2 Difficulty in walking, not elsewhere classified; H92.03 Otalgia, bilateral; Z20.822 Contact with and (suspected) exposure to COVID-19
CPT/HCPCS: 0241U-QW; 36415; 71046-TC-FY; 73562-TC-LT-FY; 73562-TC-RT-FY; 80053; 80307; 82550; 83690; 84443; 84703; 85025; 85651; 86140; 93005; 93010; 99285-25

== ENCOUNTER 2024-02-03 17:36 | Emergency (ER) | payer OTHER ==
[2024-02-03 18:40] VITALS: BMI 25.7
[2024-02-03] MEDS ORDERED: FAMOTIDINE 20 MG/50 ML IVPB 20 MG/50 ML MG IVPB ONE (19:16)
[2024-02-03] MEDS ORDERED: ONDANSETRON 4 MG/2 ML VIAL ONE (19:16)
[2024-02-03] MEDS: SODIUM CHLORIDE 0.9% 500 ML INFUS.BAG IV ONE (19:40)
[2024-02-03] MEDS: FAMOTIDINE 20 MG/50 ML IVPB 20 MG/50 ML MG IVPB ONE (19:52)
[2024-02-03] MEDS: ONDANSETRON 4 MG/2 ML VIAL IVPUSH ONE (19:52)
[2024-02-03 20:19] LABS: BASO % 0.5 % (0-2.0); EOS % 0.1 % (0-4.5); HEMATOCRIT 40.7 % (32.4-45.2); HEMOGLOBIN 13.5 GM/dL (10.7-15.3); LYMPH % 10.5 % (8-40); MCHC 33.1 g/dl (32.0-36.0); MEAN CELL VOLUME 99.6 fl (80-96); MEAN PLT VOLUME 9.3 fl (7.5-11.1); MONO % 2.7 % (3.8-10.2); NEUT % 86.2 % (42.8-82.8); PLATELET COUNT 205 10^3/uL (134-434); RBC 4.09 M/mm3 (3.60-5.2); RDW 17.2 % (11.6-15.6); WHITE BLOOD COUNT 6.5 K/mm3 (4.0-10.0)
[2024-02-03 20:32] LABS: POTASSIUM 4.1 mmol/L (3.5-5.1)
[2024-02-03] MEDS ORDERED: HALOPERIDOL LACTATE 5 MG/ML ONE (20:33)
[2024-02-03] MEDS ORDERED: ACETAMINOPHEN INJECTION 100 ML IVPB ONE (20:33)
[2024-02-03] MEDS ORDERED: MAGNESIUM SULFATE IN WATER 2 GM/50 ML IVPB IVPB ONE (20:33)
[2024-02-03 20:35] LABS: ALBUMIN 3.7 g/dl (3.4-5.0); BLOOD UREA NITROGEN 6.8 mg/dL (7-18)
[2024-02-03 20:38] LABS: CREATININE 0.8 mg/dL (0.55-1.3)
[2024-02-03 20:39] LABS: BILIRUBIN,TOTAL 1.1 mg/dL (0.2-1)
[2024-02-03 20:41] LABS: TOT PROT 7.4 g/dl (6.4-8.2)
[2024-02-03] MEDS: HALOPERIDOL LACTATE 5 MG/ML IVPUSH ONE (20:48)
[2024-02-03] MEDS: ACETAMINOPHEN 1000 MG/100 ML BAG IVPB ONE (20:48)
[2024-02-03] MEDS: MAGNESIUM SULF 50% (8.12 MEQ/2 ML-1 GM VIAL) IVPB ONE (20:48)
[2024-02-03] MEDS: SODIUM CHLORIDE 500 ML IV STA (21:59)
[2024-02-03 22:15] LABS: EPI CELLS >36 /uL (0-25.1); HYALINE CASTS 1 /uL (0-3.1); PH,URINE 6.5 (5.0-8.0); URINE APPEARANCE CLEAR; URINE BACTERIA 3610 /uL (0-1359); URINE BILIRUBIN 1+ (NEGATIVE); URINE COLOR ORANGE; URINE GLUCOSE (UA) NEGATIVE (NEGATIVE); URINE KETONE TRACE (NEGATIVE); URINE LEUK ESTERASE NEGATIVE (NEGATIVE); URINE NITRITE NEGATIVE (NEGATIVE); URINE PROTEIN 1+ (NEGATIVE); URINE RBC 28 /uL (0-23.9); URINE WBC 14 /uL (0-25.8)
[2024-02-03] MEDS ORDERED: MORPHINE SULFATE 2 MG/ML SYRINGE ONE (23:00)
[2024-02-03] MEDS: morphine CARPU-JECT 2 MG/1 ML DISP.SYRIN IVPUSH ONE (23:10)
[2024-02-03] MEDS: DEXTROSE 5%-NORMAL SALINE 1,000 ML IV ONE (23:11)
[2024-02-04 02:01] VITALS: BP 156/80; PULSE 63; RESP 14
[2024-02-04] MEDS: CEPHALEXIN MONOHYDRATE 500 MG CAPSULE (UD) PO ONE (04:22)
[2024-02-04] MEDS ORDERED: CEPHALEXIN MONOHYDRATE 500 MG CAPSULE (UD) ONE (04:23)
== END 2024-02-04 04:51 | disposition home or self-care (01) ==
LOC: JER 17:36
PROC: 3E033GC Introduction of Other Therapeutic Substance into Peripheral Vein, Percutaneous Approach (ICD-10-PCS; principal; 2024-02-03)
PROC: 3E033GC Introduction of Other Therapeutic Substance into Peripheral Vein, Percutaneous Approach (ICD-10-PCS; 2024-02-03)
PROC: 3E033GC Introduction of Other Therapeutic Substance into Peripheral Vein, Percutaneous Approach (ICD-10-PCS; 2024-02-03)
PROC: 3E033GC Introduction of Other Therapeutic Substance into Peripheral Vein, Percutaneous Approach (ICD-10-PCS; 2024-02-03)
PROC: 3E033NZ Introduction of Analgesics, Hypnotics, Sedatives into Peripheral Vein, Percutaneous Approach (ICD-10-PCS; 2024-02-03)
PROC: 3E033NZ Introduction of Analgesics, Hypnotics, Sedatives into Peripheral Vein, Percutaneous Approach (ICD-10-PCS; 2024-02-03)
PROC: 3E0337Z Introduction of Electrolytic and Water Balance Substance into Peripheral Vein, Percutaneous Approach (ICD-10-PCS; 2024-02-03)
DX: R10.11 Right upper quadrant pain (principal); R11.2 Nausea with vomiting, unspecified; R10.13 Epigastric pain; K86.1 Other chronic pancreatitis
CPT/HCPCS: 36415; 76705-TC; 80053; 81003; 83690; 84703; 85025; 93005; 93010; 99285-25; J0131

== ENCOUNTER 2024-07-05 09:36 | Inpatient (IN) | payer OTHER ==
[2024-07-05 10:05] VITALS: BMI 17.4
[2024-07-05] MEDS ORDERED: ACETAMINOPHEN 500 MG TABLET (FP) ONE (10:44)
[2024-07-05] MEDS ORDERED: ONDANSETRON 4 MG/2 ML VIAL ONE (10:44)
[2024-07-05] MEDS ORDERED: FAMOTIDINE 20 MG/50 ML IVPB 20 MG/50 ML MG IVPB ONE (10:45)
[2024-07-05] MEDS: ACETAMINOPHEN 500 MG TABLET (FP) PO ONE (11:06)
[2024-07-05] MEDS: FAMOTIDINE 20 MG/50 ML IVPB 20 MG/50 ML MG IVPB ONE (11:06)
[2024-07-05] MEDS: ONDANSETRON 4 MG/2 ML VIAL IVPUSH ONE (11:07)
[2024-07-05 11:16] LABS: BASO % 1.3 % (0-2.0); EOS % 2.8 % (0-4.5); HEMATOCRIT 38.4 % (32.4-45.2); HEMOGLOBIN 12.7 GM/dL (10.7-15.3); LYMPH % 27.7 % (8-40); MCH 32.1 pg (25.7-33.7); MCHC 33.1 g/dl (32.0-36.0); MEAN CELL VOLUME 96.9 fl (80-96); MEAN PLT VOLUME 7.6 fl (7.5-11.1); MONO % 10.4 % (3.8-10.2); NEUT % 57.8 % (42.8-82.8); PLATELET COUNT 370 10^3/uL (134-434); RBC 3.96 M/mm3 (3.60-5.2); RDW 16.6 % (11.6-15.6)
[2024-07-05] MEDS: SODIUM CHLORIDE 0.9% 500 ML INFUS.BAG IV ONE (11:25)
[2024-07-05 11:32] LABS: INR 0.98 (0.83-1.09); PROTHROMBIN TIME (PATIENT) 11.3 SEC (9.7-13.0)
[2024-07-05 11:35] LABS: ACTIVATED PTT 36.1 SECONDS (25.2-36.5)
[2024-07-05 11:36] LABS: POTASSIUM 4.4 mmol/L (3.5-5.1)
[2024-07-05 11:39] LABS: ALBUMIN 3.6 g/dl (3.4-5.0); BLOOD UREA NITROGEN 13.5 mg/dL (7-18); CALCIUM 9.6 mg/dL (8.5-10.1); MAGNESIUM 1.9 mg/dL (1.8-2.4)
[2024-07-05 11:42] LABS: CREATININE 0.7 mg/dL (0.55-1.3)
[2024-07-05 11:44] LABS: BILIRUBIN,TOTAL 0.4 mg/dL (0.2-1); TOT PROT 7.2 g/dl (6.4-8.2)
[2024-07-05 12:25] LABS: PH,URINE 6.5 (5.0-8.0); URINE APPEARANCE CLEAR; URINE BILIRUBIN NEGATIVE (NEGATIVE); URINE COLOR YELLOW; URINE GLUCOSE (UA) NEGATIVE (NEGATIVE); URINE KETONE 1+ (NEGATIVE); URINE LEUK ESTERASE NEGATIVE (NEGATIVE); URINE NITRITE NEGATIVE (NEGATIVE); URINE PROTEIN TRACE (NEGATIVE)
[2024-07-05 12:27] LABS: HCG,QUALITATIVE URINE Negative
[2024-07-05 12:34] LABS: HIV INTERPRETATION NEGATIVE (NEGATIVE)
[2024-07-05] MEDS ORDERED: morphine SULFATE 4 MG/ML VIAL ONE (12:38)
[2024-07-05] MEDS: morphine CARPU-JECT 4 MG/1 ML DISP.SYRIN IVPUSH ONE (12:45)
[2024-07-05] MEDS ORDERED: ONDANSETRON 4 MG/2 ML VIAL IVPUSH PRN (15:20)
[2024-07-05] MEDS ORDERED: KETOROLAC TROMETHAMINE 30 MG/1 ML VIAL IVPUSH PRN (15:21)
[2024-07-05] MEDS ORDERED: morphine CARPU-JECT 4 MG/1 ML DISP.SYRIN IVPUSH PRN ×3 (15:22→15:52)
[2024-07-05] MEDS ORDERED: HYDROmorphone HCl 2 MG/ML VIAL IVPUSH PRN (15:23)
[2024-07-05] MEDS ORDERED: PATIENT'S OWN MEDICATION (NON-FORMULARY) (Tizanidine Hcl [Tizanidine Hcl] 2 MG Tablet) PO PRN (15:25)
[2024-07-05] MEDS ORDERED: morphine CARPU-JECT 2 MG/1 ML DISP.SYRIN IVPUSH PRN (15:51)
[2024-07-05] MEDS ORDERED: MORPHINE SULFATE 2 MG/ML SYRINGE IVPUSH PRN (15:54)
[2024-07-05] MEDS ORDERED: LORazepam 1 MG TABLET PO PRN (15:55)
[2024-07-05] MEDS: KETOROLAC TROMETHAMINE 30 MG/1 ML VIAL IVPUSH ONE (16:36)
[2024-07-05] MEDS: morphine SULFATE 4 MG/ML VIAL IVPUSH PRN (17:55)
[2024-07-05] MEDS: LACTATED RINGERS SOLUTION 1,000 ML IV SCH (17:56)
[2024-07-05] MEDS: GABAPENTIN 300 MG CAPSULE PO SCH (22:54)
[2024-07-05] MEDS: BACLOFEN 10 MG TABLET (FP) PO SCH (22:54)
[2024-07-06] MEDS: ACETAMINOPHEN 325 MG TABLET (FP) PO PRN (02:19)
[2024-07-06] MEDS: GABAPENTIN 300 MG CAPSULE PO SCH (09:25)
[2024-07-06] MEDS: ENOXAPARIN NA (PORCINE) 40 MG/0.4 ML DISP.SYRIN SQ SCH (09:25)
[2024-07-06] MEDS: LACTATED RINGERS SOLUTION 1,000 ML IV SCH (09:25)
[2024-07-06 09:39] LABS: BASO % 1.1 % (0-2.0); EOS % 3.8 % (0-4.5); HEMATOCRIT 34.1 % (32.4-45.2); HEMOGLOBIN 11.1 GM/dL (10.7-15.3); LYMPH % 28.3 % (8-40); MCH 31.7 pg (25.7-33.7); MCHC 32.4 g/dl (32.0-36.0); MEAN CELL VOLUME 97.7 fl (80-96); MEAN PLT VOLUME 7.4 fl (7.5-11.1); MONO % 10.8 % (3.8-10.2); PLATELET COUNT 333 10^3/uL (134-434); RDW 16.4 % (11.6-15.6); WHITE BLOOD COUNT 4.6 K/mm3 (4.0-10.0)
[2024-07-06 10:02] LABS: POTASSIUM 3.1 mmol/L (3.5-5.1)
[2024-07-06 10:05] LABS: CALCIUM 8.8 mg/dL (8.5-10.1)
[2024-07-06 10:06] LABS: BLOOD UREA NITROGEN 6.8 mg/dL (7-18); MAGNESIUM 1.6 mg/dL (1.8-2.4)
[2024-07-06 10:09] LABS: CREATININE 0.6 mg/dL (0.55-1.3)
[2024-07-06 10:10] LABS: BILIRUBIN,TOTAL 0.7 mg/dL (0.2-1)
[2024-07-06 10:11] LABS: TOT PROT 5.7 g/dl (6.4-8.2)
[2024-07-06] MEDS: POTASSIUM CHLORIDE TABS 20 MEQ TABLET.ER (FP) PO SCH (11:16)
[2024-07-06] MEDS: MAG HYDROX/ALH/SMC/DPHA/LIDO 240 ML MOUTHWASH MM SCH (11:16)
[2024-07-06] MEDS: LACTATED RINGERS SOLUTION 1,000 ML/1,000 ML INFUS.BAG IV SCH (15:13)
[2024-07-06 21:14] LABS: COCAINE, UR NEGATIVE (NEGATIVE); METHADONE, UR NEGATIVE (NEGATIVE); URINE AMPHETAMINES NEGATIVE (NEGATIVE); URINE BENZODIAZEPINES NEGATIVE (NEGATIVE)
[2024-07-06 21:15] LABS: OPIATES, URI POSITIVE (NEGATIVE); PHENCYCLIDINE,URINE NEGATIVE (NEGATIVE); URINE BARBITURATES NEGATIVE (NEGATIVE)
[2024-07-07] MEDS: POLYETHYLENE GLYCOL (HEALTHYLAX) 3350 17 GM PACKET PO SCH (09:23)
[2024-07-07 10:04] LABS: BASO % 0.9 % (0-2.0); EOS % 5.4 % (0-4.5); HEMATOCRIT 34.2 % (32.4-45.2); HEMOGLOBIN 11.1 GM/dL (10.7-15.3); LYMPH % 33.4 % (8-40); MCHC 32.3 g/dl (32.0-36.0); MEAN CELL VOLUME 98.9 fl (80-96); MEAN PLT VOLUME 7.5 fl (7.5-11.1); MONO % 10.8 % (3.8-10.2); NEUT % 49.5 % (42.8-82.8); PLATELET COUNT 340 10^3/uL (134-434); RBC 3.46 M/mm3 (3.60-5.2); RDW 16.5 % (11.6-15.6)
[2024-07-07 10:33] LABS: CHLORIDE 105 mmol/L (98-107); SODIUM 138 mmol/L (136-145)
[2024-07-07] MEDS: THIAMINE 100 MG TABLET PO SCH (10:35)
[2024-07-07] MEDS: MULTIVITAMINS (DAILY MVI) TABLET (FP) PO SCH (10:35)
[2024-07-07] MEDS: FOLIC ACID 1 MG TABLET (FP) PO SCH (10:35)
[2024-07-07 10:52] LABS: ALBUMIN 3.4 g/dl (3.4-5.0); ANION GAP 5 mmol/L (4-13); CALCIUM 9.1 mg/dL (8.5-10.1); CO2 28 mmol/L (21-32)
[2024-07-07 10:53] LABS: BLOOD UREA NITROGEN 2.3 mg/dL (7-18); GLUCOSE,RANDOM 96 mg/dL (74-106); MAGNESIUM 1.7 mg/dL (1.8-2.4)
[2024-07-07 10:55] LABS: SGPT/ALT 22 U/L (13-61)
[2024-07-07 10:56] LABS: CREATININE 0.5 mg/dL (0.55-1.3); SGOT/AST 31 U/L (15-37)
[2024-07-07 10:57] LABS: BILIRUBIN,TOTAL 0.6 mg/dL (0.2-1); TOT PROT 6.4 g/dl (6.4-8.2)
[2024-07-07 10:58] LABS: ALK PHOS 71 U/L (45-117)
[2024-07-07 11:19] VITALS: BP 132/90; PULSE 70; RESP 20; TEMP 97.4
[2024-07-07 11:39] LABS: COCAINE, UR NEGATIVE (NEGATIVE); METHADONE, UR NEGATIVE (NEGATIVE); OPIATES, URI POSITIVE (NEGATIVE); PHENCYCLIDINE,URINE NEGATIVE (NEGATIVE); URINE AMPHETAMINES NEGATIVE (NEGATIVE); URINE BARBITURATES NEGATIVE (NEGATIVE); URINE BENZODIAZEPINES NEGATIVE (NEGATIVE)
[2024-07-08] MEDS ORDERED: LORazepam 0.5 MG TABLET PO PRN
== END 2024-07-07 13:14 | disposition home or self-care (01) | DRG 439 ==
LOC: JER 09:36 → JERBED 14:06 → J8W 16:10
PROVIDERS: ADMIT Internal Medicine; ATTEND Internal Medicine
DX: K85.20 Alcohol induced acute pancreatitis without necrosis or infection (principal); K86.3 Pseudocyst of pancreas; R18.8 Other ascites; G35 Multiple sclerosis; F12.90 Cannabis use, unspecified, uncomplicated; K59.03 Drug induced constipation; T40.605A Adverse effect of unspecified narcotics, initial encounter; K76.0 Fatty (change of) liver, not elsewhere classified
CPT/HCPCS: 0241U-QW; 36415; 71046-TC-FY; 74177-TC; 80053; 80307; 81003; 83690; 83735; 84100; 84484; 84703; 85025; 85610; 85730; 86140; 86803; 86850; 86900; 86901; 87086; 87389; 93005; 93010; 99285-25; J0475; Q9967

== ENCOUNTER 2024-10-21 12:18 | Observation (INO) | payer OTHER ==
[2024-10-21] MEDS ORDERED: DEXTROSE 50%-WATER 25 GM/50 ML DISP.SYRIN ONE (12:49)
[2024-10-21] MEDS ORDERED: ACETAMINOPHEN INJECTION 100 ML ONE (12:49)
[2024-10-21] MEDS ORDERED: ONDANSETRON 4 MG/2 ML VIAL ONE (12:49)
[2024-10-21] MEDS ORDERED: FAMOTIDINE 20 MG/50 ML IVPB 20 MG/50 ML MG IVPB ONE (12:50)
[2024-10-21] MEDS: DEXTROSE 50%-WATER - 25 GM/50 ML VIAL IVPUSH ONE (13:00)
[2024-10-21] MEDS: ONDANSETRON 4 MG/2 ML VIAL IVPUSH ONE (13:05)
[2024-10-21] MEDS: SODIUM CHLORIDE 0.9% 500 ML INFUS.BAG IV ONE (13:05)
[2024-10-21] MEDS: FAMOTIDINE 20 MG/50 ML IVPB 20 MG/50 ML MG IVPB ONE (13:10)
[2024-10-21] MEDS: ACETAMINOPHEN 1000 MG/100 ML BAG IVPB ONE (13:10)
[2024-10-21 13:20] LABS: BASOPHILS # 0.07 x10^3/uL (0.01-0.08); EOSINOPHIL % 1.7 % (0.7-5.8); EOSINOPHILS # 0.07 x10^3/uL (0.04-0.36); HEMATOCRIT 33.5 % (34.1-44.9); HEMOGLOBIN 10.8 g/dL (11.2-15.7); MCHC 32.2 g/dl (32.2-35.5); MEAN CELL VOLUME 96.3 fl (79.4-94.8); MONOCYTE # 0.29 x10^3/uL (0.24-0.86); MONOCYTE % 6.9 % (4.7-12.5); PLATELET COUNT 365 x10^3/uL (182-369); RDW 14.7 % (12.1-16.8)
[2024-10-21 13:44] LABS: POTASSIUM 5.5 mmol/L (3.5-5.1)
[2024-10-21 13:47] LABS: CALCIUM 9.7 mg/dL (8.5-10.1)
[2024-10-21 13:48] LABS: ALBUMIN 3.6 g/dl (3.4-5.0)
[2024-10-21 13:51] LABS: BILIRUBIN,TOTAL 0.5 mg/dL (0.2-1); CREATININE 0.6 mg/dL (0.55-1.3)
[2024-10-21 13:53] LABS: TOT PROT 7.1 g/dl (6.4-8.2)
[2024-10-21] MEDS: morphine CARPU-JECT 4 MG/1 ML DISP.SYRIN IVPUSH ONE (14:00)
[2024-10-21 14:36] LABS: HCV DIAGNOSTIC IN-HOUSE W/RFLX NON-REACTIVE (NONREACTIVE)
[2024-10-21 14:37] LABS: HIV INTERPRETATION NEGATIVE (NEGATIVE)
[2024-10-21] MEDS ORDERED: MORPHINE SULFATE 2 MG/ML SYRINGE ONE ×2 (15:12→19:15)
[2024-10-21] MEDS: morphine CARPU-JECT 2 MG/1 ML DISP.SYRIN IVPUSH ONE (15:18)
[2024-10-21] MEDS: MORPHINE SULFATE 2 MG/ML SYRINGE IVPUSH PRN (19:25)
[2024-10-21 20:13] VITALS: BMI 16.9
[2024-10-21] MEDS: ACETAMINOPHEN 1000 MG/100 ML BAG IVPB PRN (22:24)
[2024-10-22] MEDS: morphine SULFATE 4 MG/ML VIAL IVPUSH ONE (02:41)
[2024-10-22] MEDS: LACTATED RINGERS SOLUTION 1,000 ML/1,000 ML INFUS.BAG IV ONE (02:48)
[2024-10-22] MEDS: ACETAMINOPHEN 1000 MG/100 ML BAG IVPB ONE (05:00)
[2024-10-22] MEDS ORDERED: D5-1/2NS+20 MEQ KCL - 1,000 ML IV SCH (07:00)
[2024-10-22 08:37] LABS: HEMATOCRIT 30.6 % (34.1-44.9); MCHC 32.7 g/dl (32.2-35.5); MEAN PLT VOLUME 9.2 fl (9.4-12.3); PLATELET COUNT 334 x10^3/uL (182-369); RDW 14.3 % (12.1-16.8)
[2024-10-22 08:52] LABS: POTASSIUM 3.6 mmol/L (3.5-5.1)
[2024-10-22 09:04] LABS: ALBUMIN 3.2 g/dl (3.4-5.0); BLOOD UREA NITROGEN 8.9 mg/dL (7-18); CALCIUM 9.1 mg/dL (8.5-10.1); MAGNESIUM 1.6 mg/dL (1.8-2.4)
[2024-10-22 09:06] LABS: CREATININE 0.4 mg/dL (0.55-1.3)
[2024-10-22 09:07] LABS: BILIRUBIN,TOTAL 0.5 mg/dL (0.2-1); TOT PROT 5.9 g/dl (6.4-8.2)
[2024-10-22] MEDS: POLYETHYLENE GLYCOL (HEALTHYLAX) 3350 17 GM PACKET PO SCH (09:36)
[2024-10-22] MEDS: GABAPENTIN 300 MG CAPSULE PO SCH ×2 (09:37→21:06)
[2024-10-22] MEDS: PANTOPRAZOLE SODIUM 40 MG VIAL IVPUSH SCH (09:37)
[2024-10-22] MEDS: morphine SULFATE 4 MG/ML VIAL IVPUSH PRN (09:37)
[2024-10-22] MEDS: LACTATED RINGERS SOLUTION 1,000 ML/1,000 ML INFUS.BAG IV SCH (09:39)
[2024-10-22 14:37] VITALS: RESP 18
[2024-10-23] MEDS: ACETAMINOPHEN 325 MG TABLET (FP) PO PRN (17:43)
[2024-10-24 13:09] VITALS: BP 126/76; PULSE 64; TEMP 98.5
== END 2024-10-24 13:00 | disposition home or self-care (01) ==
LOC: JER 12:18 → JERBED 16:10 → J5S 19:38
PROVIDERS: ADMIT Family Medicine; ATTEND Family Medicine
PROC: 3E033NZ Introduction of Analgesics, Hypnotics, Sedatives into Peripheral Vein, Percutaneous Approach (ICD-10-PCS; principal; 2024-10-21)
PROC: 3E033GC Introduction of Other Therapeutic Substance into Peripheral Vein, Percutaneous Approach (ICD-10-PCS; 2024-10-21)
PROC: 3E033NZ Introduction of Analgesics, Hypnotics, Sedatives into Peripheral Vein, Percutaneous Approach (ICD-10-PCS; 2024-10-21)
DX: K85.90 Acute pancreatitis without necrosis or infection, unspecified (principal); R10.9 Unspecified abdominal pain; K86.3 Pseudocyst of pancreas; K86.1 Other chronic pancreatitis; G35 Multiple sclerosis; K76.0 Fatty (change of) liver, not elsewhere classified; R11.2 Nausea with vomiting, unspecified
CPT/HCPCS: 36415; 74170-TC; 80053; 82150; 82962; 83690; 83735; 84443; 84703; 85025; 85027; 86803; 87389; 96361; 96365; 96374; 96375; 96376; 99285-25; G0378; J0131; Q9967

== ENCOUNTER 2024-11-24 01:27 | Observation (INO) | payer OTHER ==
[2024-11-24 01:43] VITALS: BMI 16.8
[2024-11-24] MEDS ORDERED: ACETAMINOPHEN INJECTION 100 ML ONE (02:52)
[2024-11-24] MEDS ORDERED: FAMOTIDINE 20 MG/50 ML IVPB 20 MG/50 ML MG IVPB ONE (02:53)
[2024-11-24 03:19] LABS: HEMATOCRIT 30.9 % (34.1-44.9)
[2024-11-24 03:20] LABS: MCHC 32.4 g/dl (32.2-35.5); MEAN CELL VOLUME 95.7 fl (79.4-94.8); MEAN PLT VOLUME 9.1 fl (9.4-12.3); PLATELET COUNT 273 x10^3/uL (182-369); RDW 13.7 % (12.1-16.8)
[2024-11-24] MEDS: ACETAMINOPHEN 1000 MG/100 ML BAG IVPB ONE (03:21)
[2024-11-24] MEDS: SODIUM CHLORIDE 0.9% 500 ML INFUS.BAG IV ONE (03:21)
[2024-11-24 03:44] LABS: POTASSIUM 3.7 mmol/L (3.5-5.1)
[2024-11-24 03:46] LABS: CALCIUM 9.1 mg/dL (8.5-10.1)
[2024-11-24 03:47] LABS: ALBUMIN 3.5 g/dl (3.4-5.0); BLOOD UREA NITROGEN 13.9 mg/dL (7-18); MAGNESIUM 2.1 mg/dL (1.8-2.4)
[2024-11-24 03:50] LABS: CREATININE 0.5 mg/dL (0.55-1.3)
[2024-11-24 03:51] LABS: BILIRUBIN,TOTAL 0.2 mg/dL (0.2-1); TOT PROT 6.6 g/dl (6.4-8.2)
[2024-11-24] MEDS: FAMOTIDINE 20 MG/50 ML IVPB 20 MG/50 ML MG IVPB ONE (04:29)
[2024-11-24] MEDS ORDERED: MORPHINE SULFATE 2 MG/ML SYRINGE ONE (05:27)
[2024-11-24] MEDS: morphine CARPU-JECT 2 MG/1 ML DISP.SYRIN IVPUSH ONE (05:36)
[2024-11-24] MEDS ORDERED: ONDANSETRON 4 MG/2 ML VIAL IVPUSH PRN (05:36)
[2024-11-24] MEDS ORDERED: ACETAMINOPHEN 1000 MG/100 ML BAG IVPB PRN ×2 (05:39→09:58)
[2024-11-24] MEDS: DEXTROSE 5%-0.45% SALINE 1,000 ML IV SCH (07:30)
[2024-11-24 08:36] LABS: COCAINE, UR NEGATIVE (NEGATIVE); METHADONE, UR NEGATIVE (NEGATIVE); PHENCYCLIDINE,URINE NEGATIVE (NEGATIVE); URINE AMPHETAMINES NEGATIVE (NEGATIVE); URINE BARBITURATES NEGATIVE (NEGATIVE); URINE BENZODIAZEPINES NEGATIVE (NEGATIVE)
[2024-11-24 08:38] LABS: OPIATES, URI POSITIVE (NEGATIVE)
[2024-11-24 08:48] LABS: ABSOLUTE IMMATURE GRANULOCYTES 0.01 x10^3/uL (0.0-0.031); BASOPHILS # 0.04 x10^3/uL (0.01-0.08); EOSINOPHILS # 0.11 x10^3/uL (0.04-0.36); HEMATOCRIT 29.1 % (34.1-44.9); HEMOGLOBIN 9.3 g/dL (11.2-15.7); MEAN PLT VOLUME 9.5 fl (9.4-12.3); MONOCYTE # 0.27 x10^3/uL (0.24-0.86); MONOCYTE % 7.4 % (4.7-12.5); PLATELET COUNT 255 x10^3/uL (182-369); RDW 13.7 % (12.1-16.8)
[2024-11-24 09:12] LABS: POTASSIUM 3.7 mmol/L (3.5-5.1)
[2024-11-24 09:14] LABS: CALCIUM 8.6 mg/dL (8.5-10.1)
[2024-11-24 09:15] LABS: BLOOD UREA NITROGEN 12.7 mg/dL (7-18)
[2024-11-24 09:19] LABS: BILIRUBIN,TOTAL 0.4 mg/dL (0.2-1); TOT PROT 5.7 g/dl (6.4-8.2)
[2024-11-24 09:25] LABS: CREATININE 0.5 mg/dL (0.55-1.3)
[2024-11-24] MEDS ORDERED: MORPHINE SULFATE 2 MG/ML SYRINGE IVPUSH PRN (10:00)
[2024-11-24] MEDS: DULoxetine HCL 30 MG CAPSULE.DR PO SCH (10:48)
[2024-11-24] MEDS: ACETAMINOPHEN 1000 MG/100 ML BAG IVPB PRN (11:24)
[2024-11-24] MEDS: GABAPENTIN 300 MG CAPSULE PO SCH (13:11)
[2024-11-24] MEDS: KETOROLAC TROMETHAMINE 30 MG/1 ML VIAL IM ONE (16:30)
[2024-11-24] MEDS: traMADol HCL 50 MG TABLET PO ONE (21:22)
[2024-11-25] MEDS: KETOROLAC TROMETHAMINE 15 MG/ML VIAL IVPUSH ONE (01:57)
[2024-11-25 09:32] LABS: BASOPHILS # 0.04 x10^3/uL (0.01-0.08); EOSINOPHIL % 6.7 % (0.7-5.8); EOSINOPHILS # 0.18 x10^3/uL (0.04-0.36); HEMATOCRIT 28.8 % (34.1-44.9); HEMOGLOBIN 9.2 g/dL (11.2-15.7); MCHC 31.9 g/dl (32.2-35.5); MEAN CELL VOLUME 96.3 fl (79.4-94.8); MEAN PLT VOLUME 9.6 fl (9.4-12.3); MONOCYTE % 11.2 % (4.7-12.5); PLATELET COUNT 240 x10^3/uL (182-369); RDW 13.3 % (12.1-16.8)
[2024-11-25 09:57] LABS: POTASSIUM 3.8 mmol/L (3.5-5.1)
[2024-11-25 10:34] LABS: ALBUMIN 2.9 g/dl (3.4-5.0); BLOOD UREA NITROGEN 8.5 mg/dL (7-18); CALCIUM 8.5 mg/dL (8.5-10.1)
[2024-11-25 10:37] LABS: CREATININE 0.5 mg/dL (0.55-1.3)
[2024-11-25 10:38] LABS: BILIRUBIN,TOTAL 0.2 mg/dL (0.2-1)
[2024-11-25 10:41] LABS: TOT PROT 5.5 g/dl (6.4-8.2)
[2024-11-25] MEDS: traMADol HCL 50 MG TABLET PO ONE (21:31)
[2024-11-26] MEDS: KETOROLAC TROMETHAMINE 15 MG/ML VIAL IVPUSH ONE (07:24)
[2024-11-26 08:28] LABS: BASOPHILS # 0.06 x10^3/uL (0.01-0.08); EOSINOPHIL % 4.9 % (0.7-5.8); EOSINOPHILS # 0.15 x10^3/uL (0.04-0.36); HEMATOCRIT 29.6 % (34.1-44.9); HEMOGLOBIN 9.5 g/dL (11.2-15.7); MCHC 32.1 g/dl (32.2-35.5); MEAN PLT VOLUME 9.9 fl (9.4-12.3); MONOCYTE # 0.39 x10^3/uL (0.24-0.86); MONOCYTE % 12.8 % (4.7-12.5); PLATELET COUNT 242 x10^3/uL (182-369); RDW 13.3 % (12.1-16.8)
[2024-11-26 08:45] LABS: POTASSIUM 3.9 mmol/L (3.5-5.1)
[2024-11-26 08:47] LABS: CALCIUM 8.6 mg/dL (8.5-10.1)
[2024-11-26 08:48] LABS: BLOOD UREA NITROGEN 6.3 mg/dL (7-18)
[2024-11-26 08:51] LABS: CREATININE 0.6 mg/dL (0.55-1.3)
[2024-11-26 08:52] LABS: BILIRUBIN,TOTAL 0.3 mg/dL (0.2-1)
[2024-11-26 08:53] LABS: TOT PROT 5.5 g/dl (6.4-8.2)
[2024-11-26] MEDS ORDERED: GLUCAGON 1 MG KIT ONE (15:17)
[2024-11-26] MEDS: INDOMETHACIN 50 MG RECTAL SUPPOSITORY PR ONE (17:26)
[2024-11-26] MEDS: PRAMIPEXOLE DIHYDROCHLORIDE 0.25 MG TABLET PO SCH (22:34)
[2024-11-27 08:20] LABS: EOSINOPHIL % 0.3 % (0.7-5.8); EOSINOPHILS # 0.02 x10^3/uL (0.04-0.36); HEMOGLOBIN 9.9 g/dL (11.2-15.7)
[2024-11-27 08:22] LABS: ABSOLUTE IMMATURE GRANULOCYTES 0.02 x10^3/uL (0.0-0.031); BASOPHILS # 0.02 x10^3/uL (0.01-0.08); HEMATOCRIT 30.7 % (34.1-44.9); MCHC 32.2 g/dl (32.2-35.5); MEAN CELL VOLUME 95.9 fl (79.4-94.8); MEAN PLT VOLUME 9.8 fl (9.4-12.3); MONOCYTE # 0.43 x10^3/uL (0.24-0.86); MONOCYTE % 6.9 % (4.7-12.5); PLATELET COUNT 284 x10^3/uL (182-369); RDW 12.8 % (12.1-16.8)
[2024-11-27 08:31] LABS: INR 1.06 (0.83-1.09); PROTHROMBIN TIME (PATIENT) 11.7 SEC (9.7-13.0)
[2024-11-27 08:33] LABS: POTASSIUM 3.9 mmol/L (3.5-5.1)
[2024-11-27 08:41] LABS: CALCIUM 8.8 mg/dL (8.5-10.1)
[2024-11-27 08:42] LABS: BLOOD UREA NITROGEN 9.5 mg/dL (7-18)
[2024-11-27 08:45] LABS: CREATININE 0.6 mg/dL (0.55-1.3)
[2024-11-27 08:46] LABS: BILIRUBIN,TOTAL 0.2 mg/dL (0.2-1); TOT PROT 5.7 g/dl (6.4-8.2)
[2024-11-27 11:27] VITALS: BP 123/74; PULSE 89; RESP 16; TEMP 98.4
== END 2024-11-27 11:54 | disposition home or self-care (01) ==
LOC: JER 01:27 → JERBED 05:35 → J8W 09:15
PROVIDERS: ADMIT Internal Medicine; ATTEND Internal Medicine
PROC: 3E033NZ Introduction of Analgesics, Hypnotics, Sedatives into Peripheral Vein, Percutaneous Approach (ICD-10-PCS; 2024-11-24)
PROC: 3E033GC Introduction of Other Therapeutic Substance into Peripheral Vein, Percutaneous Approach (ICD-10-PCS; 2024-11-24)
PROC: 3E0333Z Introduction of Anti-inflammatory into Peripheral Vein, Percutaneous Approach (ICD-10-PCS; 2024-11-24)
PROC: 3E0337Z Introduction of Electrolytic and Water Balance Substance into Peripheral Vein, Percutaneous Approach (ICD-10-PCS; 2024-11-24)
PROC: 0FJB8ZZ Inspection of Hepatobiliary Duct, Via Natural or Artificial Opening Endoscopic (ICD-10-PCS; principal; 2024-11-26 13:15)
DX: K85.90 Acute pancreatitis without necrosis or infection, unspecified (principal); F10.99 Alcohol use, unspecified with unspecified alcohol-induced disorder; R10.9 Unspecified abdominal pain; G43.909 Migraine, unspecified, not intractable, without status migrainosus; G25.81 Restless legs syndrome; I05.0 Rheumatic mitral stenosis; K59.00 Constipation, unspecified; K76.0 Fatty (change of) liver, not elsewhere classified; R11.2 Nausea with vomiting, unspecified; F12.90 Cannabis use, unspecified, uncomplicated; K70.10 Alcoholic hepatitis without ascites; Z87.19 Personal history of other diseases of the digestive system; Z87.891 Personal history of nicotine dependence
CPT/HCPCS: 36415; 76000-TC-FY; 80053; 80307; 82728; 83540; 83550; 83690; 83735; 84466; 84484; 84702; 85025; 85610; 94760; 96365; 96375; 96376; 99285-25; C1769; G0378